=== PATIENT | male | born 1960 | race Asian ===

== ENCOUNTER 2018-07-26 17:19 | Inpatient (IN) | payer MEDICAID ==
[2018-07-26 19:12] LABS: ANION GAP 15.7 mmol/L (5-15); CHLORIDE,CL 108 mmol/L (98-115); SODIUM,NA 144 mmol/L (136-145)
[2018-07-26] MEDS ORDERED: Sodium Chloride 0.9% 250 ML ONE (19:34)
[2018-07-26] MEDS: Pantoprazole 40 MG Vial IVPUSH SCH (22:46)
[2018-07-27] MEDS: Pantoprazole 40 MG Vial IVPUSH SCH ×2 (08:38→20:29)
--- NOTE | 2018-07-27 10:00 | PCM.PN ---
- General Info Date of Service: 07/27/18 Functional Status: Reports: Pain Controlled, Tolerating Diet, Ambulating. Denies: New Symptoms - Review of Systems General: Reports: Weakness, Appetite. Denies: Fever Pulmonary: Denies: Shortness of Breath, Sputum, Hemoptysis, Wheezing Cardiovascular: Reports: Dyspnea on Exertion. Denies: Chest Pain, Palpitations , Orthopnea, PND, Edema, Lightheadedness Gastrointestinal: Reports: Abdominal Pain (Epigastric pain), Melena. Denies: Difficulty Swallowing, Nausea, Vomiting Genitourinary: Reports: No Symptoms Musculoskeletal: Reports: Other (Chronic bilateral shoulder pain) Skin: Denies: Pallor, Dryness, Pruritis Neurological: Reports: Tingling (Transient tingling upper extremities chronic). Denies: Confusion, Dizziness - Patient Data Vitals - Most Recent: Last Vital Signs Temp 99.1 F 07/27/18 06:33 Pulse 62 07/27/18 06:33 Resp 18 07/27/18 06:33 BP 129/76 07/27/18 06:33 Pulse Ox 100 07/27/18 06:33 Weight - Most Recent: 129 lb 3.2 oz I&O - Last 24 Hours: Intake & Output 07/26/18 07/27/18 07/27/18 22:59 06:59 14:59 Intake Total 965 575 Balance 965 575 Lab Results Last 24 Hours: Laboratory Results - last 24 hr 07/26/18 07/26/18 07/26/18 Range/Units 18:30 18:30 18:30 WBC 8.22 (5.00-10.00) 10^3/uL RBC 1.94 L (4.50-6.00) 10^6/uL Hgb 5.2 L* (13.0-17.0) g/dL Hct 16.9 L* (40.0-52.0) % MCV 87.1 (82.0-92.0) fL MCH 26.8 L (27.0-31.0) pg MCHC 30.8 L (32.0-36.0) g/dL RDW 16.1 H (11.5-14.5) % Plt Count 443 H (150-400) 10^3/uL MPV 8.6 (7.4-10.4) fL Immature Gran % (Auto) 0.2 (0.0-5.0) % Neut % (Auto) 56.1 (50.0-70.0) % Lymph % (Auto) 29.3 (20.0-40.0) % [place] % (Auto) 9.1 H (2.0-8.0) % Eos % (Auto) 4.3 H (1.0-3.0) % Baso % (Auto) 1.0 (0.0-1.0) % Immature Gran # (Auto) 0.02 (0.00-0.50) 10^3/uL Neut # (Auto) 4.61 (2.50-7.00) 10^3/uL Lymph # (Auto) 2.41 (1.00-4.00) 10^3/uL [place] # (Auto) 0.75 (0.10-0.80) 10^3/uL Eos # (Auto) 0.35 H (0.10-0.30) 10^3/uL Baso # (Auto) 0.08 (0.00-0.10) 10^3/uL Sodium 144 (136-145) mmol/L Potassium 4.1 (3.3-5.3) mmol/L Chloride 108 (98-115) mmol/L Carbon Dioxide 24.4 (21.0-32.0) mmol/L Anion Gap 15.7 H (5-15) mmol/L BUN 12 (6-25) mg/dL Creatinine 0.92 (0.51-1.17) mg/dL Est Cr Clr Drug Dosing 72.55 mL/min Estimated GFR (MDRD) > 60 mL/min Glucose 78 (75 - 99) mg/dL Calcium 7.9 L (8.7-10.3) mg/dL Total Bilirubin 0.2 (0.2-1.0) mg/dL AST 19 (15-37) U/L ALT 28 (12-78) U/L Alkaline Phosphatase 87 (46-116) IU/L Troponin I 0.10 H* (0.00-0.070) ng/mL Total Protein 6.5 (6.4-8.2) g/dL Albumin 3.39 (3.00-4.80) g/dL Blood Type O POSITIVE Gel Antibody Screen Negative Crossmatch See Detail 07/27/18 07/27/18 Range/Units 07:15 07:15 WBC 6.82 (5.00-10.00) 10^3/uL RBC 2.98 L (4.50-6.00) 10^6/uL Hgb 8.2 L D (13.0-17.0) g/dL Hct 25.8 L (40.0-52.0) % MCV 86.6 (82.0-92.0) fL MCH 27.5 (27.0-31.0) pg MCHC 31.8 L (32.0-36.0) g/dL RDW 15.4 H (11.5-14.5) % Plt Count 424 H (150-400) 10^3/uL MPV 8.6 (7.4-10.4) fL Immature Gran % (Auto) 0.3 (0.0-5.0) % Neut % (Auto) 58.2 (50.0-70.0) % Lymph % (Auto) 27.3 (20.0-40.0) % [place] % (Auto) 8.8 H (2.0-8.0) % Eos % (Auto) 4.5 H (1.0-3.0) % Baso % (Auto) 0.9 (0.0-1.0) % Immature Gran # (Auto) 0.02 (0.00-0.50) 10^3/uL Neut # (Auto) 3.97 (2.50-7.00) 10^3/uL Lymph # (Auto) 1.86 (1.00-4.00) 10^3/uL [place] # (Auto) 0.60 (0.10-0.80) 10^3/uL Eos # (Auto) 0.31 H (0.10-0.30) 10^3/uL Baso # (Auto) 0.06 (0.00-0.10) 10^3/uL Sodium (136-145) mmol/L Potassium (3.3-5.3) mmol/L Chloride (98-115) mmol/L Carbon Dioxide (21.0-32.0) mmol/L Anion Gap (5-15) mmol/L BUN (6-25) mg/dL Creatinine (0.51-1.17) mg/dL Est Cr Clr Drug Dosing mL/min Estimated GFR (MDRD) mL/min Glucose (75 - 99) mg/dL Calcium (8.7-10.3) mg/dL Total Bilirubin (0.2-1.0) mg/dL AST (15-37) U/L ALT (12-78) U/L Alkaline Phosphatase (46-116) IU/L Troponin I 0.08 H* (0.00-0.070) ng/mL Total Protein (6.4-8.2) g/dL Albumin (3.00-4.80) g/dL Blood Type Gel Antibody Screen Crossmatch Basilio Results Last 24 Hours: Microbiology 07/27/18 09:05 Stool Occult Blood (BASILIO) - Final Stool / Feces NEGATIVE OCCULT BLOOD Med Orders - Current: Current Medications Pantoprazole Sodium (Protonix Iv) 40 mg IVPUSH BID JOHN Last Admin: 07/27/18 08:38 Dose: 40 mg Discontinued Medications Sodium Chloride (Normal Saline) Confirm Administered Dose 250 mls @ as directed .ROUTE .STK-MED ONE Stop: 07/26/18 19:35 Last Admin: 07/26/18 20:15 Dose: 25 mls/hr - Exam Quality Assessment: No: Supplemental Oxygen General: Alert, Oriented Neck: Supple Lungs: Clear to Auscultation, Normal Respiratory Effort Cardiovascular: Regular Rate, Regular Rhythm, No Murmurs GI/Abdominal Exam: Soft, No Organomegaly, No Distention, Other (Digital rectal exam, negative for occult blood/stool). No: Guarding, Rigid, Tender, Mass, Hepatomegaly, Splenomegaly (Male) Exam: Deferred Back Exam: No: CVA Tenderness (L), CVA Tenderness (R) Extremities: No: Pedal Edema Peripheral Pulses: 2+: Radial (L), Radial (R) Skin: Warm, Dry, Intact Neurological: No New Focal Deficit Psy/Mental Status: Alert, Normal Affect, Normal Mood - Problem List Review Problem List Initiated/Reviewed/Updated: Yes - Plan Plan:: History summary Mr Hauser is a 57-year-old gentleman from [facility] that was evaluated yesterday and admitted to [facility] inpatient status by Milo Friedman due to severe anemia hemoglobin of 5.4 He presented to the [facility] complaining of weakness along with shortness of breath. He states 2 weeks ago he was shoveling now when he became very short of breath, lightheadedness, tachycardia and fatigue--requiring periods of rest. He denied any specific chest pain however he does have bilateral shoulder problems which causes some tingling sensation in both extremities at times. On further questioning patient did state he had 2 or 3 days of significant bloody stools however he contributes this to drinking considerable amount of grape juice. He denies any nausea or vomiting. Quit smoking 3 weeks ago, has cut down on his EtOH intake which appears he drinks approximately 2-3 beers 12 ounce per day. Recent NSAID use due to to generalized body/shoulder aches/arthritis--difficulty in quantifying however does admit in taking Excedrin Migraine with aspirin 1 or 2 doses a day and at times Aleve and Ibuprofen. He states he has significant epigastric pain and has been on Pepcid and Tums with some relief. Review of his medical chart Patient was also placed on Medrol Dosepak steroids middle May due to arthritic flareup. He was placed inpatient status and received 2 units of red blood cells upon admission. PPI twice a day was started. Patient admits to large family no history of requiring blood transfusions or anemias. Denies dysphagia, Denies any history of hepatitis. Primary hospital problems --Anemia, normocytic, normochromic, mild anisocytosis, anemia workup, peripheral smear to assess if true microcytic and/or any poik noted, may be possible hemoglobin electrophoresis. However with recent history suspect UGIB, although negative DARIEL. Continue with twice a day PPI, avoid NSAIDs, decrease EtOH use. Was monitored in hemoglobin, consider starting on iron soon. --Possible peptic ulcer disease, PPI --Non-STEMI, likely type II, troponin trending down, low threshold for ACS no EKG concerns. Telemetry Overall plan, continue telemetry status today, PPI, monitor patient today likely discharge tomorrow with close follow-up/ hemoglobin, and endoscopy/ colonoscopy. Anemia workup, Ongoing education regarding avoiding NSAID use
[2018-07-27] MEDS ORDERED: EPINEPHrine 1:10,000 1 MG/10 ML Syringe IVPUSH PRN (11:11)
[2018-07-27] MEDS ORDERED: Lidocaine 2% 100 MG/5 ML Syringe IVPUSH PRN (11:11)
[2018-07-27] MEDS ORDERED: Nitroglycerin 0.4 MG Tab.SL SL PRN (11:11)
[2018-07-27] MEDS ORDERED: Atropine 0.1 MG/ML 10 ML Syringe IVPUSH PRN (11:11)
[2018-07-27] MEDS ORDERED: Sodium Chloride 0.9% 10 ML Syringe FLUSH PRN (14:44)
[2018-07-27] MEDS: Lisinopril 5 MG Tab PO SCH (20:28)
[2018-07-28] MEDS: Pantoprazole 40 MG Vial IVPUSH SCH (10:08)
[2018-07-28] MEDS: Lisinopril 5 MG Tab PO SCH (10:08)
== END 2018-07-28 11:15 | disposition home or self-care (01) | DRG 811 ==
LOC: KA.MS 17:54
PROVIDERS: ADMIT Physician Assistant; ATTEND Family Medicine
PROC: 30233N1 Transfusion of Nonautologous Red Blood Cells into Peripheral Vein, Percutaneous Approach (ICD-10-PCS; principal; 2018-07-26)
DX: D64.9 Anemia, unspecified (principal); I21.A1 Myocardial infarction type 2; I10 Essential (primary) hypertension; Z87.891 Personal history of nicotine dependence; Z91.013 Allergy to seafood
CPT/HCPCS: 36415; 36430; 80053; 82272; 82728; 83540; 83550; 84484; 85008; 85018; 85025; 85046; 86850; 86900; 86901; 86920; 86922; A9270-GY; C9113; J7050; P9016

== ENCOUNTER 2018-08-02 06:45 | Day surgery (SDC) | payer MEDICAID ==
[~2018-08-02 06:45] MED LIST: EPINEPHrine 1:10,000 1 MG/10 ML Syringe ONE; Propofol 200 MG/20 ML SDV ONE
[2018-08-02] MEDS ORDERED: Sodium Chloride 0.9% 10 ML Syringe FLUSH PRN (07:00)
[2018-08-02] MEDS: Lactated Ringers 1,000 ML IV SCH (07:11)
[2018-08-02] MEDS ORDERED: Glycopyrrolate 0.2 MG/ML 5 ML MDV IV ONE (08:13)
[2018-08-02] MEDS ORDERED: Lidocaine 1% 50 ML MDV INJECT ONE (08:13)
[2018-08-02] MEDS ORDERED: Propofol 200 MG/20 ML SDV IV ONE (08:13)
--- NOTE | 2018-08-02 08:35 | PCM.OPNOTE ---
- General Post-Op/Procedure Note Date of Surgery/Procedure: 08/02/18 Operative Procedure(s): Upper gastrointestinal endoscopy and biopsies. Findings: An acute ulcer was found in the incisura angularis. Multiple biopsies were taken using a hot biopsy forceps. Anesthesia Technique: MAC Primary Surgeon: Jimi Live Complications: None Condition: Good Free Text/Narrative:: INFORMED CONSENT: Patient is here today for elective upper GI endoscopy. All aspects of this procedure have been discussed with the patient. All possible complications also, including possibility of perforation, infection, pain, bleeding, numbness of the throat, swallowing difficulty and unknown complications. In the event of perforation the patient may need surgical exploration to repair the defect. The patient understands fully well. Patient did not have any further questions for me at the end of my interview. The patient wishes for me to proceed. INSTRUMENT USED: Video gastroscope ANESTHESIA: [MAC] ASA CLASSIFICATION: [2] PROCEDURE PERFORMED: [Upper gastrointestinal endoscopy with biopsies] PHARYNX: Normal. ESOPHAGUS: Normal. Proximal: Normal. Middle: Normal. Lower: Normal. GE Junction: Normal. STOMACH: A moderate quantity of old undigested food eaten last night was still present.. Cardia: Normal. Fundus: Normal. Lesser Curvature: Abdominal bruit at the incisura angularis a moderate-sized ulcer was seen with a sharp. No active bleeding. Biopsies were taken from the to the ulcer using hot biopsy forceps. Greater Curvature: Normal. Antrum: Normal. Pylorus: Normal. DUODENUM: Normal. First Part: Normal. Second Part: Normal. Third Part: Normal. RETROFLEXION: Normal. BIOPSY: None. TOLERANCE: Excellent. COMPLICATIONS: None. Final diagnosis acute ulcer at the incisura angularis and old undigested food present within the stomach without any evidence of obstruction.
[2018-08-02] MEDS: Calcium Carbonate 500 MG Tab.Chew PO SCH (09:40)
[2018-08-02] MEDS: Ferrous Sulfate 160 MG TAB.ER PO SCH (09:40)
[2018-08-02] MEDS ORDERED: Omeprazole 20 MG Cap.CR PO SCH (17:30)
== END 2018-08-02 10:10 | disposition home or self-care (01) ==
LOC: KA.SDS 06:45
PROVIDERS: ATTEND Family Medicine
DX: K25.9 Gastric ulcer, unspecified as acute or chronic, without hemorrhage or perforation (principal); I10 Essential (primary) hypertension; Z87.891 Personal history of nicotine dependence; Z91.013 Allergy to seafood
CPT/HCPCS: 36415; 84484; 85018; A9270-GY; J2704; J3490; J7120

== ENCOUNTER 2024-07-17 15:18 | Emergency (ER) | payer MEDICAID ==
[2024-07-17] MEDS ORDERED: Sodium Chloride 0.9% 10 ML Syringe FLUSH PRN (15:42)
[2024-07-17] MEDS: Sodium Chloride 0.9% 1,000 ML IV ONE (15:56)
[2024-07-17 15:58] LABS: BASOPHILS ABSOLUTE AUTO 0.02 10^3/uL (0.00-0.10); BASOPHILS PERCENT AUTO 0.3 % (0.0-1.0); EOSINOPHILS ABSOLUTE AUTO 0.09 10^3/uL (0.10-0.30); EOSINOPHILS PERCENT AUTO 1.3 % (1.0-3.0); HEMATOCRIT 31.5 % (40.0-52.0); IMMATURE GRAN ABSOLUTE AUTO 0.03 10^3/uL (0.00-0.04); IMMATURE GRAN PERCENT AUTO 0.4 % (0.0-0.4); LYMPHOCYTES ABSOLUTE AUTO 1.49 10^3/uL (1.00-4.00); MEAN CORPUSCULAR HEMOGLOBIN 30.8 pg (27.0-31.0); MEAN CORPUSCULAR HGB CONC 34.9 g/dL (32.0-36.0); MEAN CORPUSCULAR VOLUME 88.2 fL (82.0-92.0); MEAN PLATELET VOLUME 9.9 fL (7.4-10.4); MONOCYTES ABSOLUTE AUTO 0.54 10^3/uL (0.10-0.80); MONOCYTES PERCENT AUTO 7.6 % (2.0-8.0); NEUTROPHILS ABSOLUTE AUTO 4.94 10^3/uL (2.50-7.00); NEUTROPHILS PERCENT AUTO 69.4 % (50.0-70.0); PLATELET COUNT,PLT 227 10^3/uL (150-400); RED BLOOD CELL COUNT 3.57 10^6/uL (4.50-6.00); RED CELL DISTRIBUTION WIDTH 12.8 % (11.5-14.5); WHITE BLOOD CELL COUNT,WBC 7.11 10^3/uL (5.00-10.00)
[2024-07-17 16:20] LABS: ALANINE AMINOTRANSFERASE,ALT 21 U/L (14-63); ALBUMIN 3.06 g/dL (3.40-5.00); ALKALINE PHOSPHATASE 68 U/L (46-116); ANION GAP 11.7 mmol/L (5-15); ASPARTATE AMNIOTRANSFERASE,AST 16 U/L (15-37); BILIRUBIN TOTAL 0.7 mg/dL (0.2-1.0); BLOOD UREA NITROGEN,BUN 46 mg/dL (7-18); CALCIUM 8.1 mg/dL (8.7-10.3); CARBON DIOXIDE,CO2 28.3 mmol/L (21.0-32.0); CHLORIDE,CL 107 mmol/L (98-107); CREATININE 0.91 mg/dL (0.51-1.17); GLUCOSE RANDOM 107 mg/dL (70-140); SODIUM,NA 142 mmol/L (136-145)
[2024-07-17 16:21] LABS: ESTIMATED GFR 94 mL/min (>=60)
[2024-07-17] MEDS: Aspirin 81 MG Tab.Chew ONE (16:45)
[2024-07-17] MEDS: Aspirin 81 MG Tab.EC PO ONE (16:46)
[2024-07-17] MEDS: Aspirin 81 MG Tab.Chew PO ONE (16:47)
[2024-07-17 16:48] LABS: MAGNESIUM 1.8 mg/dL (1.8-2.4)
[2024-07-17] MEDS: Pantoprazole 40 MG Vial IVPUSH ONE (19:39)
== END 2024-07-17 20:10 ==
LOC: KA.ED 15:18
DX: R55 Syncope and collapse (principal); K92.2 Gastrointestinal hemorrhage, unspecified; R79.89 Other specified abnormal findings of blood chemistry; R19.5 Other fecal abnormalities; Z91.013 Allergy to seafood
CPT/HCPCS: 36415; 71045; 80053; 82270; 82947; 83735; 83880; 84484; 85025; 93010; 96361; 96374; 99284; 99285; A9270; J2470; J7030